=== PATIENT | male | born 1990 | race Caucasian/White ===

== ENCOUNTER 2022-10-01 00:13 | Emergency (ER) | payer BC ==
[~2022-10-01] VITALS: Ht 182.8 cm; Wt 81.6 kg
[2022-10-01] MEDS ORDERED: HYDROCODONE-AC1 EAC1 PO ×2 (03:02→10:15)
== END 2022-10-01 03:18 | disposition home or self-care (01) ==
LOC: ED 00:13
DX: M24.411 Recurrent dislocation, right shoulder (principal); J45.909 Unspecified asthma, uncomplicated